=== PATIENT | male | born 1980 | race Caucasian/White ===

== ENCOUNTER 2022-07-12 15:24 | Emergency (ER) | payer SELFPAY ==
[~2022-07-12] VITALS: Ht 175.3 cm; Wt 95.0 kg
[~2022-07-12 15:24] MED LIST: AMOXICILLIN500 MG OR; LORTAB 5 OR; NAPROSYN500 MG OR; NO MEDS; PROAIR HFA IN; PYRIDIUM200 MG PO; TRIMOX500 MG PO; ULTRAM50 M1 PO; ULTRAM50 MG OR; VICODIN1 TAB OR; ZITHROMAX250 MG OR
[2022-07-12] MEDS ORDERED: ULTRAM50 M1 PO ×2 (16:13→17:01)
[2022-07-12] MEDS ORDERED: CLONIDINE0.1 MG PO ×2 (16:13→17:01)
[2022-07-12 16:49] VITALS: BP 136/88
[2022-07-13] MEDS ORDERED: CLONIDINE0.1 MG PO (11:53)
[2022-07-13] MEDS ORDERED: ULTRAM50 M1 PO (11:53)
== END 2022-07-12 16:49 | disposition home or self-care (01) | DRG 93 ==
LOC: ED 15:24
DX: G89.29 Other chronic pain (principal); F17.200 Nicotine dependence, unspecified, uncomplicated; Z79.891 Long term (current) use of opiate analgesic